=== PATIENT | male | born 1995 | race Hispanic/Latino ===

== ENCOUNTER 2024-03-08 18:35 | Emergency (ER) | payer SELFPAY ==
[~2024-03-08] VITALS: Ht 172.7 cm; Wt 113.4 kg
[2024-03-08 19:44] VITALS: TEMP 98.8
[2024-03-08] MEDS: TRAMADOL HCL 50 MG TAB PO STA (20:03)
[2024-03-09 00:30] VITALS: PULSE 72; RESP 17
[2024-03-09] MEDS ORDERED: CIPRO500 MG PO (01:52)
[2024-03-09] MEDS ORDERED: ULTRAM 50MG50 MG PO (01:53)
[2024-03-09 02:28] VITALS: BP 136/85; O2SAT 96
== END 2024-03-09 02:30 | disposition home or self-care (01) ==
LOC: ER 18:39
DX: N50.811 Right testicular pain (principal)
CPT/HCPCS: 76870; 93976; 99283